=== PATIENT | female | born 1970 | race Caucasian/White ===

== ENCOUNTER 2016-03-23 21:58 | Emergency (ER) | payer SELFPAY ==
[2016-03-23 22:32] VITALS: TEMP 98.5; BMI 27.4
[2016-03-23] MEDS ORDERED: ONDANSETRON HCL 4 MG/2 ML VIAL IV ONE (23:00)
[2016-03-23] MEDS ORDERED: SODIUM CHLORIDE 0.9% 10 ML FLUSH FLUSH PRN (23:00)
[2016-03-23] MEDS ORDERED: MORPHINE 4 MG/ML INJECTION IV ONE (23:00)
--- NOTE | 2016-03-23 23:00 | EDPRACDOC ---
<Jose Farmer - Last Filed: 03/23/16 23:33> - General Information Mode of Arrival: Car - History of Present Illness Onset: This morning HPI: PT COMPLAINS OF SEVERE SHARP PAIN IN LEFT KNEE THAT BEGAN THIS MORNING, STATES THAT KNEE BEGAN SWELLING THROUGHOUT THE DAY AND BEGAN TO FEEL WARM AND HAVE REDNESS TO THE TOP OF THE KNEE THIS EVENING. PT DENIES ANY KNOWN INJURY, NO FEVER OR CHILLS, NO N/V/D, NO RECENT INJURY OR ILLNESS. Knee Problem Location: Left Mechanism: Reports: None Circumstances: Reports: Spontaneous Relevant History: Reports: None Able to Bear Weight: Limited Pain Severity: Reports: Severe Associated Signs & Symptoms: Reports: Swelling, Other (REDNESS). Denies: Fever , Hip Pain, Thigh Pain, Leg Pain, Ankle Pain <Arturo Hughes - Last Filed: 03/24/16 00:01> - General Information Chief Complaint: Knee Pain Stated Complaint: LT KNEE SWELLING Time Seen by Provider: 03/23/16 22:47 Home Medications: Home Medications Ciprofloxacin HCl [Cipro] 500 mg PO BID #14 tab 03/23/16 Oxycodone Immediate Release [Oxy-Ir] 5 mg PO Q6H PRN #20 tab 03/23/16 Prednisone [Deltasone, Orasone] 40 mg PO DAILY 5 Days 03/23/16 ED Past Medical History - History Reviewed Yes Nurses notes reviewed and agree except as marked No Past Medical History: Yes Patient has no past medical history - Patient Medical History Psychological History: Denies: Depression Surgical History: Denies: Hysterectomy - Social Medical History Smoking Status: Never smoker <Arturo Hughes - Last Filed: 03/24/16 00:01> EDM Review of Systems - Review of Systems Constitutional: negative: Chills, Fever Eyes: negative: Blurred Vision, Double Vision Ears: negative: Drainage Throat: negative: Pain Nose: negative: Congestion, Discharge Respiratory: negative: Cough, Shortness of Breath, Wheezing Cardiovascular: negative: Chest Pain, Palpitations Gastrointestinal: negative: Diarrhea, Nausea, Pain, Vomiting Genitourinary: negative: Dysuria, Frequency Neurological: negative: Dizziness, Headache, Numbness, Weakness Musculoskeletal: Knee Integumentary: No Symptoms Reported <Arturo Hughes - Last Filed: 03/24/16 00:01> - Physical Exam Last recorded Vital Signs: Last Vital Signs Temp 98.5 F 01/24/17 22:27 Pulse 85 03/23/16 23:21 Resp 20 03/23/16 23:21 BP 132/74 03/23/16 23:21 Pulse Ox 98 03/23/16 23:21 Oxygen Pulse Oxygen Saturation 98 O2 Device Room Air Oxygen Flow Rate Fraction of Inspired Oxygen ( FIO2) <Jose Farmer - Last Filed: 03/23/16 23:33> - Physical Exam Constitutional: Alert (Awake), No apparent distress Oriented to: Time, Person, Place Last recorded Vital Signs: Last Vital Signs Temp 98.5 F 03/23/16 22:27 Pulse 89 03/23/16 22:27 Resp 18 03/23/16 22:27 BP 133/75 03/23/16 22:27 Pulse Ox 98 03/23/16 22:27 Oxygen Pulse Oxygen Saturation 98 O2 Device Room Air Oxygen Flow Rate Fraction of Inspired Oxygen ( FIO2) - HEENT Head: Normal ( normocephalic) - Neurologic Memory Impaired: Normal Motor Function: Normal (Normal tone, Pulses 2+ No cyanosis or edema, FROM) Cranial Nerve: Normal (CN II-X11 intact sensation, strength 5/5) Cerebellar: Normal Mood Description: Normal Perception: Normal <Arturo Hughes - Last Filed: 03/24/16 00:01> ED Knee Problem Phys Exam - Musculoskeletal Knee: Swelling, Joint Effusion, Limited ROM, Moderate Tenderness Knee Ligaments: Normal Knee Meniscus: Normal Thigh: Normal. negative: Swelling, Deformity Lower Leg: Normal. negative: Swelling, Deformity Distal Function/Circulation: Normal, Capillary Refill. negative: Motor Deficit , Pulse Deficit, Sensory Deficit - Integumentary Skin: Erythema, Warm <Arturo Hughes - Last Filed: 03/24/16 00:01> - Results 03/23/16 23:20 03/23/16 23:20 WBC 14.1 xk/uL (3.8-10.8) H 03/23/16 23:20 RBC 4.38 xM/uL (4.20-5.40) 03/23/16 23:20 Hgb 11.8 g/dL (12.0-16.0) L 03/23/16 23:20 Hct 36.3 % (36-47) 03/23/16 23:20 MCV 83 fL (81-99) 03/23/16 23:20 MCH 26.9 pg (27-32) L 03/23/16 23:20 MCHC 32.4 g/dl (33-36) L 03/23/16 23:20 RDW 14.7 % (11.5-14.5) H 03/23/16 23:20 Plt Count 265 xk/uL (130-400) 03/23/16 23:20 MPV 8.1 fL (7.4-10.4) 03/23/16 23:20 Neut % (Auto) 69.4 % (45-76) 03/23/16 23:20 Lymph % (Auto) 21.5 % (17-44) 03/23/16 23:20 [place] % (Auto) 4.9 % (3-10) 03/23/16 23:20 Eos % (Auto) 3.7 % (0-5) 03/23/16 23:20 Baso % (Auto) 0.5 % (0-2) 03/23/16 23:20 Absolute Neuts (auto) 9.73 xk/uL (1.7-8.2) H 03/23/16 23:20 Absolute Lymphs (auto) 2.96 xk/uL (0.65-4.75) 03/23/16 23:20 Lab Results 03/23/16 23:20 WBC 14.1 H RBC 4.38 Hgb 11.8 L Hct 36.3 MCV 83 MCH 26.9 L MCHC 32.4 L RDW 14.7 H Plt Count 265 MPV 8.1 Neut % (Auto) 69.4 Lymph % (Auto) 21.5 [place] % (Auto) 4.9 Eos % (Auto) 3.7 Baso % (Auto) 0.5 Absolute Neuts (auto) 9.73 H Absolute Lymphs (auto) 2.96 - Additional Information MD NOTE SEEN AND EXAMINED; X RAY REVIEWED. EXAM CW PREPATELLAR BURSITIS. <Jose Farmer - Last Filed: 03/23/16 23:33> - Differential Diagnosis DJD Arthritis, Gout Arthritis, Septic Arthritis - Results 03/23/16 23:20 03/23/16 23:20 - Diagnostic Imaging LEFT KNEE Image interpreted by: Radiologist LEFT KNEE - COMPLETE 4+ VIEW COMPARISON: None. FINDINGS: There is no evidence of fracture or dislocation. The joint spaces are preserved. No significant degenerative change is seen; the patellofemoral joint is grossly unremarkable in appearance. No significant joint effusion is seen. The visualized soft tissues are normal in appearance. IMPRESSION: No evidence of fracture or dislocation. <Arturo Hughes - Last Filed: 03/24/16 00:01> <Jose Farmer - Last Filed: 03/23/16 23:33> Decision Time to Discharge: 23:58 - Departure Disposition: Home Education/Counseling Given To: Patient Education/Counseling Given Regarding: Diagnosis, Treatment, Prognosis, Follow Up <Arturo Hughes - Last Filed: 03/24/16 00:01> - Departure Condition: Stable Final Diagnosis: Prepatellar bursitis of left knee Instructions: Knee Bursitis (ED) Referrals: Jason Nguyen MD [Staff Physician] - One Week Prescriptions: Ciprofloxacin HCl [Cipro] 500 mg PO BID #14 tab Oxycodone Immediate Release [Oxy-Ir] 5 mg PO Q6H PRN #20 tab PRN Reason: Pain Prednisone [Deltasone, Orasone] 40 mg PO DAILY 5 Days Additional Instructions: REST, ELEVATE YOUR KNEE MUCH POSSIBLE, APPLY WARM COMPRESSES TO YOUR KNEE 20 MINS AT A TIME 4 - 5 TIMES DAILY NEEDED FOR PAIN, RETURN TO THE ED FOR ANY WORSENING SYMPTOMS OR CONCERNS.
--- NOTE | 2016-03-23 23:18 | DIRPT ---
CLINICAL DATA: Acute onset of left knee pain and swelling. Initial encounter. EXAM: LEFT KNEE - COMPLETE 4+ VIEW COMPARISON: None. FINDINGS: There is no evidence of fracture or dislocation. The joint spaces are preserved. No significant degenerative change is seen; the patellofemoral joint is grossly unremarkable in appearance. No significant joint effusion is seen. The visualized soft tissues are normal in appearance. IMPRESSION: No evidence of fracture or dislocation. Electronically Signed By: Samuel Limon M.D. On: 03/23/2016 23:15
[2016-03-23 23:21] VITALS: PULSE 85
[2016-03-23 23:27] LABS: AUTOMATED BASOPHIL 0.5 % (0-2); AUTOMATED EOSINOPHIL 3.7 % (0-5); AUTOMATED LYMPH 21.5 % (17-44); AUTOMATED MONOCYTE 4.9 % (3-10); AUTOMATED NEUTROPHIL 69.4 % (45-76); MPV 8.1 fL (7.4-10.4)
[2016-03-23] MEDS ORDERED: CIPROFLOXACIN HCL 500 MG TAB PO ONE (23:35)
[2016-03-23 23:47] LABS: BLOOD UREA NITROGEN 21 MG/DL (7-17); CALC CORRECTED 8.6 MG/DL (8.4-10.2); CALCIUM 8.5 MG/DL (8.4-10.2); CALCULATED OSMOLALITY 278 MOs/Kg (270-290); CHLORIDE 105 mEq/L (98-107); GLUCOSE 105 MG/DL (70-99); SODIUM LEVEL 143 mEq/L (137-146); TOTAL PROTEIN 7.7 G/DL (6.3-8.2)
[2016-03-23] MEDS ORDERED: HYDROmorphone 1 MG INJECTION IV ONE (23:53)
[2016-03-24 00:27] VITALS: BP 136/72
== END 2016-03-24 00:28 | disposition home or self-care (01) ==
LOC: ED 21:58
DX: M70.42 Prepatellar bursitis, left knee (principal)
CPT/HCPCS: 36415; 73564; 80053; 85025; 96374; 96375; 99283; J1170; J2270; J2405; J3490